=== PATIENT | male | born 1940 | race Caucasian/White ===

== ENCOUNTER → 2020-12-12 | Outpatient (CLI) | payer MEDICARE ==
[~2020-12-12] MED LIST: ELIQUIS 5 MG TAB5 MG PO; ELIQUIS5 MG PO; LEVOTHYROXINE25 MCG PO; LISINOPRIL20 MG PO; MELOXICAM15 MG PO; SIMVASTATIN80 MG PO
== END ==
LOC: KOH-I 09:58
DX: I26.99 Other pulmonary embolism without acute cor pulmonale (principal); J47.9 Bronchiectasis, uncomplicated; R59.0 Localized enlarged lymph nodes
CPT/HCPCS: 71250

== ENCOUNTER → 2021-08-26 | Outpatient (CLI) | payer MEDICARE | LOC: KOH-I 09:59 | DX: M54.50 Low back pain, unspecified (principal); M47.816 Spondylosis without myelopathy or radiculopathy, lumbar region; M16.0 Bilateral primary osteoarthritis of hip | CPT/HCPCS: 72100; 73522 ==

== ENCOUNTER → 2022-04-20 | Outpatient (CLI) | payer MEDICARE ==
[~2022-04-20] MED LIST changes: +AMLODIPINE BESYL5 MG PO; +NITROGLYCERIN0.4 MG SL
== END ==
LOC: KOH-I 10:25
DX: M86.172 Other acute osteomyelitis, left ankle and foot (principal); M19.072 Primary osteoarthritis, left ankle and foot
CPT/HCPCS: 73630

== ENCOUNTER → 2022-05-14 | Outpatient (CLI) | payer MEDICARE | LOC: KOH-I 08:52 | DX: M79.671 Pain in right foot (principal); M89.9 Disorder of bone, unspecified; M19.071 Primary osteoarthritis, right ankle and foot | CPT/HCPCS: 73630 ==